=== PATIENT | female | born 1955 | race Caucasian/White ===

== ENCOUNTER 2022-08-04 05:21 | Inpatient (IN) | payer MEDICARE, MEDICAID ==
[~2022-08-04] VITALS: Ht 157.5 cm; Wt 67.6 kg
[2022-08-04] VITALS (24 sets, daily range): BP systolic 110–148; BP diastolic 63–93
[~2022-08-04 05:21] MED LIST: AMI2 PO; APIX5TAB PO; CARV12.545 PO; DOCU-150 PO; FERR325T6 PO; FURO20TA4 PO; LISI40TA13 PO; METF-416 PO; ROSU40TA PO
[2022-08-04 05:56] LABS: INR 1.1; PARTIAL THROMBOPLASTIN TIME 28.9 sec (23.4-31.0); PROTHROMBIN TIME 11.4 sec (9.6-11.0)
[2022-08-04 06:02] LABS: CHLORIDE 104 mEq/L (98-107)
[2022-08-04] MEDS ORDERED: SODIUM CHLORIDE 0.9% 1,000 ML IV SCH (06:15)
[2022-08-04 06:24] LABS: BASOPHILS % 0.9 % (0.0-2.0); EOSINOPHILS % 1.2 % (0.0-5.0); HEMATOCRIT. 35.5 % (36.0-48.0); HEMOGLOBIN. 11.8 g/dL (12.0-16.0); LYMPHOCYTES % 26.5 % (20.0-50.0); MEAN CORPUSCULAR HEMOGLOBIN 32.2 pg (28.0-32.0); MEAN CORPUSCULAR VOLUME 96.7 fL (81.0-99.0); MEAN PLATELET VOLUME 8.5 fl (7.4-10.4); MONOCYTES % 7.3 % (2.0-8.0); NEUTROPHILS % 64.1 % (40.0-76.0); PLATELET 296 x1000/uL (130-400); RED BLOOD CELL COUNT 3.67 mill/uL (4.2-5.4); RED CELL DISTRIBUTION WIDTH 14.2 % (11.6-14.6)
[2022-08-04 06:45] LABS: CLARITY URINE CLEAR (CLEAR); COLOR URINE YELLOW (YELLOW); KETONES URINE NEGATIVE (NEGATIVE); LEUKOCYTE ESTERASE URINE NEGATIVE (NEGATIVE); NITRITE URINE NEGATIVE (NEGATIVE); OCCULT BLOOD URINE NEGATIVE (NEGATIVE); PROTEIN URINE 2+ (NEGATIVE); SPECIFIC GRAVITY URINE 1.019 (1.005-1.030); UROBILINOGEN URINE 0.2 E.U./dL (0.2-1.0)
[2022-08-04] MEDS ORDERED: GENTAMICIN SULF 40MG/ML 2ML VIAL ONE (08:59)
[2022-08-04] MEDS ORDERED: LIDOCAINE HCL/EPINEPHRINE 1%-EPI 1:100,000 20 ML VIAL ONE (08:59)
[2022-08-04] MEDS ORDERED: NEOSTIGMINE METHYLSULFATE 1MG/ML 10 ML VIAL ONE (08:59)
[2022-08-04] MEDS ORDERED: SUCCINYLCHOLINE CHLORIDE 200MG/10ML IV ONE (08:59)
[2022-08-04] MEDS ORDERED: ETOMIDATE 2MG/ML 10ML VIAL IV ONE (08:59)
[2022-08-04] MEDS ORDERED: DEXAMETHASONE 4MG/ML 1ML VIAL ONE (08:59)
[2022-08-04] MEDS ORDERED: ROCURONIUM BROMIDE 10MG/ML VIAL 5ML IV ONE ×2 (08:59→09:10)
[2022-08-04] MEDS ORDERED: FENTANYL CITRATE/PF 50MCG/ML 2ML VIAL ONE (09:00)
[2022-08-04] MEDS ORDERED: MIDAZOLAM HCL 2 MG/2 ML VIAL ONE (09:00)
[2022-08-04] MEDS ORDERED: BACITRACIN 15GM TUBE TOP ONE (09:01)
[2022-08-04] MEDS ORDERED: THROMBIN (BOVINE) 5000 UNITS/VIAL TOP ONE (09:01)
[2022-08-04] MEDS ORDERED: CEFAZOLIN SODIUM 1000MG/VIAL ONE (09:33)
[2022-08-04] MEDS ORDERED: HYDROMORPHONE HCL/PF 2MG/ML CPJ ONE (09:34)
[2022-08-04] MEDS ORDERED: EPHEDRINE SULFATE 50MG/ML VIAL ONE (10:14)
[2022-08-04] MEDS ORDERED: HYDRALAZINE 20MG/ML VIAL ONE ×2 (10:16)
[2022-08-04] MEDS ORDERED: GLYCOPYRROLATE 0.2 MG/ML 2ML VIAL ONE ×3 (10:23→10:53)
[2022-08-04] MEDS ORDERED: NALOXONE HCL 0.4 MG/ML 1ML VIAL ONE (10:56)
[2022-08-04] MEDS ORDERED: NALOXONE HCL 0.4MG/ML VIAL IV PRN (11:00)
[2022-08-04] MEDS ORDERED: NICARDIPINE 100 MG in SODIUM CHLORIDE 0.9% 60 ML IV PRN (11:29)
[2022-08-04 12:38] LABS: BG BASE EXCESS -5.4 mmol/L (-2.0-2.0); BG CARBOXYHEMOGLOBIN 0.3 % (0.5-1.5); BG DEOXYHEMOGLOBIN 1.3 % (0.0-5.0); BG FRACTION INSPIRED OXYGEN 100; BG HCO3 ACT 19.3 mmol/L (22.0-26.0); BG METHEMOGLOBIN 0.2 % (0.0-1.5); BG OXYGEN SATURATION 98.7 % (92.0-98.5); BG OXYHEMOGLOBIN 98.2 % (94.0-97.0); BG PO2 172.5 mmHg (75.0-100.0); BG SAMPLE SITE RIGHT BRACHIAL; BG TOTAL HEMOGLOBIN 11.9 g/dL (12.0-18.0); BG VENT MODE VENT - AC
[2022-08-04] MEDS: DEXT 5%/LACTATED RINGERS 1,000 ML IV SCH ×2 (12:57→20:46)
[2022-08-04] MEDS: DEXAMETHASONE 4MG/ML 1ML VIAL IV SCH ×2 (12:57→17:14)
[2022-08-04] MEDS ORDERED: CEFAZOLIN SODIUM 1000MG/VIAL IV SCH (14:00)
[2022-08-04] MEDS: MORPHINE SULFATE 4 MG/ML CPJ (NOT FOR IM USE) IV PRN ×2 (14:09→17:14)
[2022-08-04] MEDS ORDERED: IPRATROPIUM/ALBUTEROL 0.5-3(2.5)MG/3ML NEB HHN PRN (14:15)
[2022-08-04 15:44] LABS: BG BASE EXCESS -4.6 mmol/L (-2.0-2.0); BG CARBOXYHEMOGLOBIN 0.3 % (0.5-1.5); BG DEOXYHEMOGLOBIN 1.6 % (0.0-5.0); BG FRACTION INSPIRED OXYGEN 50; BG HCO3 ACT 20.3 mmol/L (22.0-26.0); BG METHEMOGLOBIN 0.1 % (0.0-1.5); BG OXYGEN SATURATION 98.4 % (92.0-98.5); BG PCO2 36.8 mmHg (35.0-45.0); BG PH 7.359 (7.350-7.450); BG PO2 152.9 mmHg (75.0-100.0); BG SAMPLE SITE RIGHT RADIAL; BG TOTAL HEMOGLOBIN 11.9 g/dL (12.0-18.0); BG VENT MODE VENT - CPAP
[2022-08-04] MEDS ORDERED: HYDROMORPHONE PCA 10MG/50ML IV PRN (16:00)
[2022-08-04] MEDS ORDERED: NALOXONE INJ IV PRN (16:00)
[2022-08-04] MEDS ORDERED: DIPHENHYDRAMINE INJ IV PRN (16:00)
[2022-08-04] MEDS: CEFAZOLIN 1000MG PREMIX 50 ML IV SCH (17:14)
[2022-08-04] MEDS: ONDANSETRON INJ IV PRN (17:22)
[2022-08-05] VITALS (38 sets, daily range): BP systolic 109–160; BP diastolic 54–95
[2022-08-05] MEDS: DEXAMETHASONE 4MG/ML 1ML VIAL IV SCH ×4 (00:07→17:24)
[2022-08-05] MEDS: CEFAZOLIN 1000MG PREMIX 50 ML IV SCH ×3 (00:07→17:23)
[2022-08-05 06:02] LABS: HEMATOCRIT. 34.5 % (36.0-48.0); HEMOGLOBIN. 11.5 g/dL (12.0-16.0); LYMPHOCYTES % 8.4 % (20.0-50.0); MEAN CORPUSCULAR HEMOGLOBIN 32.3 pg (28.0-32.0); MEAN CORPUSCULAR VOLUME 97.2 fL (81.0-99.0); MEAN PLATELET VOLUME 8.9 fl (7.4-10.4); MONOCYTES % 3.4 % (2.0-8.0); NEUTROPHILS % 88.2 % (40.0-76.0); PLATELET 301 x1000/uL (130-400); RED BLOOD CELL COUNT 3.55 mill/uL (4.2-5.4); RED CELL DISTRIBUTION WIDTH 14.1 % (11.6-14.6)
[2022-08-05 06:49] LABS: CHLORIDE 104 mEq/L (98-107)
[2022-08-05] MEDS: MORPHINE SULFATE 4 MG/ML CPJ (NOT FOR IM USE) IV PRN ×2 (06:51→21:23)
[2022-08-05] MEDS: DEXT 5%/LACTATED RINGERS 1,000 ML IV SCH (06:55)
[2022-08-05] MEDS ORDERED: DEXTROSE 50% WATER 50ML SYRINGE IV PRN ×2 (13:45)
[2022-08-05] MEDS: BLOOD SUGAR DIAGNOSTIC STRIP TEST SCH ×2 (16:49→21:24)
[2022-08-05] MEDS: INSULIN LISPRO 100 UNITS/ML SUBCUT SCH ×2 (17:24→21:24)
[2022-08-05] MEDS: ONDANSETRON INJ IV PRN (17:29)
[2022-08-05] MEDS: ATORVASTATIN CALCIUM 40MG TABLET PO SCH (21:23)
[2022-08-06] VITALS (29 sets, daily range): BP systolic 110–150; BP diastolic 68–98
[2022-08-06] MEDS: CEFAZOLIN 1000MG PREMIX 50 ML IV SCH ×3 (01:26→16:10)
[2022-08-06] MEDS: DEXAMETHASONE 4MG/ML 1ML VIAL IV SCH ×3 (01:26→11:57)
[2022-08-06] MEDS: DEXT 5%/LACTATED RINGERS 1,000 ML IV SCH ×2 (03:00→06:16)
[2022-08-06] MEDS: INSULIN LISPRO 100 UNITS/ML SUBCUT SCH ×4 (06:16→21:47)
[2022-08-06] MEDS: BLOOD SUGAR DIAGNOSTIC STRIP TEST SCH ×5 (06:17→21:00)
[2022-08-06] MEDS: MORPHINE SULFATE 4 MG/ML CPJ (NOT FOR IM USE) IV PRN ×3 (06:25→16:07)
[2022-08-06] MEDS: FUROSEMIDE 40MG TABLET PO SCH (08:15)
[2022-08-06] MEDS: AMIODARONE HCL 200 MG TABLET PO SCH (08:16)
[2022-08-06] MEDS: CARVEDILOL 12.5MG TABLET PO SCH (08:16)
[2022-08-06] MEDS: LISINOPRIL 40MG TABLET PO SCH (08:16)
[2022-08-06] MEDS: METFORMIN HCL 500MG TABLET PO SCH (08:17)
[2022-08-06] MEDS: FERROUS SULFATE 325MG TABLET PO SCH (08:17)
[2022-08-06] MEDS ORDERED: CLONIDINE 0.1MG TABLET PO PRN (15:45)
[2022-08-06] MEDS: ATORVASTATIN CALCIUM 40MG TABLET PO SCH (21:45)
[2022-08-07] VITALS: BP 130/82
[2022-08-07] MEDS: MORPHINE SULFATE 4 MG/ML CPJ (NOT FOR IM USE) IV PRN ×2 (02:26→18:32)
[2022-08-07 04:00] VITALS: BP 135/90
[2022-08-07] MEDS: BLOOD SUGAR DIAGNOSTIC STRIP TEST SCH ×4 (07:40→21:00)
[2022-08-07 08:00] VITALS: BP 129/74
[2022-08-07] MEDS: AMIODARONE HCL 200 MG TABLET PO SCH (08:40)
[2022-08-07] MEDS: FERROUS SULFATE 325MG TABLET PO SCH (08:40)
[2022-08-07] MEDS: FUROSEMIDE 40MG TABLET PO SCH (08:41)
[2022-08-07] MEDS: CARVEDILOL 12.5MG TABLET PO SCH (08:41)
[2022-08-07] MEDS: LISINOPRIL 40MG TABLET PO SCH (08:41)
[2022-08-07] MEDS: METFORMIN HCL 500MG TABLET PO SCH (08:41)
[2022-08-07] MEDS: INSULIN LISPRO 100 UNITS/ML SUBCUT SCH ×4 (08:48→20:55)
[2022-08-07] MEDS: HYDROCODONE/ACETAMINOPHEN 5/325MG TABLET PO PRN ×2 (10:59→15:25)
[2022-08-07 12:00] VITALS: BP 108/65
[2022-08-07 16:00] VITALS: BP 110/63
[2022-08-07 20:00] VITALS: BP 107/63
[2022-08-07] MEDS: ATORVASTATIN CALCIUM 40MG TABLET PO SCH (20:51)
[2022-08-08] VITALS (7 sets, daily range): BP systolic 95–138; BP diastolic 54–84
[2022-08-08 05:26] LABS: BASOPHILS % 0.3 % (0.0-2.0); EOSINOPHILS % 0.4 % (0.0-5.0); HEMATOCRIT. 34.9 % (36.0-48.0); HEMOGLOBIN. 11.7 g/dL (12.0-16.0); LYMPHOCYTES % 18.7 % (20.0-50.0); MEAN CORPUSCULAR HEMOGLOBIN 32.1 pg (28.0-32.0); MEAN CORPUSCULAR VOLUME 95.9 fL (81.0-99.0); MEAN PLATELET VOLUME 8.3 fl (7.4-10.4); MONOCYTES % 7.3 % (2.0-8.0); NEUTROPHILS % 73.3 % (40.0-76.0); PLATELET 253 x1000/uL (130-400); RED BLOOD CELL COUNT 3.63 mill/uL (4.2-5.4); RED CELL DISTRIBUTION WIDTH 13.8 % (11.6-14.6)
[2022-08-08] MEDS: BLOOD SUGAR DIAGNOSTIC STRIP TEST SCH ×4 (07:20→20:59)
[2022-08-08] MEDS: INSULIN LISPRO 100 UNITS/ML SUBCUT SCH ×4 (07:50→20:59)
[2022-08-08] MEDS: ONDANSETRON INJ IV PRN (08:59)
[2022-08-08] MEDS: FUROSEMIDE 40MG TABLET PO SCH (09:00)
[2022-08-08] MEDS: MORPHINE SULFATE 4 MG/ML CPJ (NOT FOR IM USE) IV PRN ×2 (09:00→22:34)
[2022-08-08] MEDS: LISINOPRIL 40MG TABLET PO SCH (09:01)
[2022-08-08] MEDS: METFORMIN HCL 500MG TABLET PO SCH (09:01)
[2022-08-08] MEDS: AMIODARONE HCL 200 MG TABLET PO SCH (09:01)
[2022-08-08] MEDS: CARVEDILOL 12.5MG TABLET PO SCH (09:01)
[2022-08-08] MEDS: FERROUS SULFATE 325MG TABLET PO SCH (09:01)
[2022-08-08] MEDS: HYDROCODONE/ACETAMINOPHEN 5/325MG TABLET PO PRN (18:51)
[2022-08-08] MEDS: ATORVASTATIN CALCIUM 40MG TABLET PO SCH (21:15)
[2022-08-09] MEDS: HYDROCODONE/ACETAMINOPHEN 5/325MG TABLET PO PRN ×2 (03:51→07:16)
[2022-08-09 04:00] VITALS: BP 150/86
[2022-08-09] MEDS: BLOOD SUGAR DIAGNOSTIC STRIP TEST SCH ×4 (06:36→21:00)
[2022-08-09] MEDS: INSULIN LISPRO 100 UNITS/ML SUBCUT SCH ×4 (06:36→21:02)
[2022-08-09 08:00] VITALS: BP 165/95
[2022-08-09] MEDS: FERROUS SULFATE 325MG TABLET PO SCH (08:38)
[2022-08-09] MEDS: FUROSEMIDE 40MG TABLET PO SCH (08:38)
[2022-08-09] MEDS: LISINOPRIL 40MG TABLET PO SCH (08:38)
[2022-08-09] MEDS: AMIODARONE HCL 200 MG TABLET PO SCH (08:38)
[2022-08-09] MEDS: CARVEDILOL 12.5MG TABLET PO SCH (08:39)
[2022-08-09 14:00] VITALS: BP 135/78
[2022-08-09 16:00] VITALS: BP 121/74
[2022-08-09 20:00] VITALS: BP 128/78
[2022-08-09] MEDS: ATORVASTATIN CALCIUM 40MG TABLET PO SCH (21:00)
[2022-08-10] VITALS (8 sets, daily range): BP systolic 119–157; BP diastolic 64–94
[2022-08-10] MEDS: BLOOD SUGAR DIAGNOSTIC STRIP TEST SCH ×3 (06:26→17:30)
[2022-08-10] MEDS: INSULIN LISPRO 100 UNITS/ML SUBCUT SCH ×3 (06:54→17:58)
[2022-08-10] MEDS: AMIODARONE HCL 200 MG TABLET PO SCH (08:39)
[2022-08-10] MEDS: FERROUS SULFATE 325MG TABLET PO SCH (08:39)
[2022-08-10] MEDS: CARVEDILOL 12.5MG TABLET PO SCH (08:40)
[2022-08-10] MEDS: FUROSEMIDE 40MG TABLET PO SCH (08:40)
[2022-08-10] MEDS: LISINOPRIL 40MG TABLET PO SCH (08:42)
[2022-08-10] MEDS ORDERED: CARVEDILOL 12.5MG TABLET PO NR (10:30)
[2022-08-10] MEDS ORDERED: HYDROCODONE/ACETAMINOPHEN 5/325MG TABLET PO PRN (14:30)
[2022-08-10] MEDS ORDERED: NALOXONE HCL 0.4MG/ML VIAL IV PRN (14:45)
[2022-08-10] MEDS ORDERED: FUROSEMIDE 20MG TABLET PO SCH (17:40)
[2022-08-10] MEDS ORDERED: CARVEDILOL 12.5MG TABLET PO SCH (21:00)
== END 2022-08-10 18:53 | DRG 471 ==
LOC: OR 05:21 → MICUNO 05:22 → 6WST 08-06 16:52
PROVIDERS: ADMIT Internal Medicine; ATTEND Internal Medicine
PROC: 0RG2071 Fusion of 2 or more Cervical Vertebral Joints with Autologous Tissue Substitute, Posterior Approach, Posterior Column, Open Approach (ICD-10-PCS; principal; 2022-08-04)
PROC: 01N10ZZ Release Cervical Nerve, Open Approach (ICD-10-PCS; 2022-08-04)
PROC: 4A11X4G Monitoring of Peripheral Nervous Electrical Activity, Intraoperative, External Approach (ICD-10-PCS; 2022-08-04)
DX: M48.02 Spinal stenosis, cervical region (principal); G82.50 Quadriplegia, unspecified; G99.2 Myelopathy in diseases classified elsewhere; I69.354 Hemiplegia and hemiparesis following cerebral infarction affecting left non-dominant side; D64.9 Anemia, unspecified; Z20.822 Contact with and (suspected) exposure to COVID-19; E11.9 Type 2 diabetes mellitus without complications; I48.91 Unspecified atrial fibrillation; E78.5 Hyperlipidemia, unspecified; I50.9 Heart failure, unspecified; I11.0 Hypertensive heart disease with heart failure; R26.9 Unspecified abnormalities of gait and mobility; Z79.01 Long term (current) use of anticoagulants; Z85.038 Personal history of other malignant neoplasm of large intestine
CPT/HCPCS: 36415; 36600; 71045; 72040; 72141; 76000; 80048; 80053; 81003; 82375; 82805; 82947; 82962; 83036; 85025; 86850; 86900; 87426; 88304; 88311; 94002; 95925; 95926; 95928; 95929; 97110; 97116; 97162; 97166; 97530; C1713; C9803; J0330; J0360; J0690; J1100; J1170; J1580; J1815; J2250; J2270; J2310; J2405; J2710; J3010; J3490; J7050; J7121; L0172

== ENCOUNTER 2022-08-20 17:52 | Inpatient (IN) | payer MEDICARE, MEDICAID ==
[~2022-08-20] VITALS: Ht 157.5 cm; Wt 70.8 kg
[2022-08-20 08:00] VITALS: BP 112/65
[2022-08-20 17:05] VITALS: BP 115/78
[2022-08-20 18:00] VITALS: BP 115/78
[2022-08-20] MEDS ORDERED: DEXTROSE 50% WATER 50ML SYRINGE IV PRN (18:15)
[2022-08-20] MEDS: BLOOD SUGAR DIAGNOSTIC STRIP TEST SCH ×2 (18:20→21:21)
[2022-08-20] MEDS: INSULIN LISPRO 100 UNITS/ML SUBCUT SCH ×2 (18:20→22:06)
[2022-08-20] MEDS ORDERED: IPRATROPIUM/ALBUTEROL 0.5-3(2.5)MG/3ML NEB HHN PRN (18:30)
[2022-08-20] MEDS ORDERED: CLONIDINE 0.1MG TABLET PO PRN (18:30)
[2022-08-20] MEDS ORDERED: NALOXONE HCL 0.4MG/ML VIAL IV PRN (18:30)
[2022-08-20] MEDS: GABAPENTIN 300MG CAPSULE PO SCH (19:04)
[2022-08-20] MEDS: HYDROCODONE/ACETAMINOPHEN 10/325MG TABLET PO PRN (19:05)
[2022-08-20 20:25] VITALS: BP 100/63
[2022-08-20] MEDS: METOPROLOL TARTRATE 50MG TABLET PO SCH (20:47)
[2022-08-20] MEDS ORDERED: DICLOFENAC SODIUM 1% GEL 50GM TOP SCH (21:00)
[2022-08-20] MEDS: LACTULOSE 20G/30ML UDC PO SCH (21:12)
[2022-08-20] MEDS: ATORVASTATIN CALCIUM 40MG TABLET PO SCH (21:14)
[2022-08-21] VITALS (47 sets, daily range): BP systolic 90–156; BP diastolic 53–97
[2022-08-21] MEDS: LACTULOSE 20G/30ML UDC PO SCH ×3 (05:00→21:14)
[2022-08-21] MEDS: INSULIN LISPRO 100 UNITS/ML SUBCUT SCH ×4 (05:07→20:09)
[2022-08-21] MEDS ORDERED: GENTAMICIN SULF 40MG/ML 2ML VIAL ONE (06:02)
[2022-08-21] MEDS ORDERED: THROMBIN (BOVINE) 5000 UNITS/VIAL TOP ONE (06:02)
[2022-08-21] MEDS ORDERED: BACITRACIN 15GM TUBE TOP ONE (06:02)
[2022-08-21] MEDS ORDERED: LIDOCAINE HCL/EPINEPHRINE 1%-EPI 1:100,000 20 ML VIAL ONE (06:19)
[2022-08-21] MEDS ORDERED: PROPOFOL 200MG/20ML VIAL IV ONE (06:47)
[2022-08-21] MEDS ORDERED: MIDAZOLAM HCL 2 MG/2 ML VIAL ONE (06:48)
[2022-08-21] MEDS ORDERED: ONDANSETRON HCL 4MG/2ML INJ ONE (07:55)
[2022-08-21] MEDS ORDERED: FENTANYL CITRATE/PF 50MCG/ML 2ML VIAL ONE (07:55)
[2022-08-21] MEDS ORDERED: DEXAMETHASONE 4MG/ML 1ML VIAL ONE (07:55)
[2022-08-21] MEDS ORDERED: SUCCINYLCHOLINE CHLORIDE 200MG/10ML IV ONE (07:55)
[2022-08-21] MEDS ORDERED: FENTANYL CITRATE/PF 50MCG/ML 2ML VIAL IV PRN (08:15)
[2022-08-21] MEDS ORDERED: HYDROMORPHONE HCL/PF 2MG/ML CPJ IV PRN (08:15)
[2022-08-21] MEDS ORDERED: ATROPINE SULFATE 0.4MG/ML VIAL IV PRN (08:15)
[2022-08-21] MEDS ORDERED: ERGOCALCIFEROL 50000UNITS CAPSULE PO SCH (09:00)
[2022-08-21] MEDS: BLOOD SUGAR DIAGNOSTIC STRIP TEST SCH ×4 (09:00→20:09)
[2022-08-21] MEDS ORDERED: NICARDIPINE 100 MG in SODIUM CHLORIDE 0.9% 60 ML IV PRN (09:30)
[2022-08-21 11:06] LABS: HEMATOCRIT. 34.9 % (36.0-48.0); HEMOGLOBIN. 11.9 g/dL (12.0-16.0); MEAN CORPUSCULAR HEMOGLOBIN 33.1 pg (28.0-32.0); MEAN CORPUSCULAR VOLUME 96.7 fL (81.0-99.0); MEAN PLATELET VOLUME 7.4 fl (7.4-10.4); PLATELET 321 x1000/uL (130-400); RED BLOOD CELL COUNT 3.61 mill/uL (4.2-5.4); RED CELL DISTRIBUTION WIDTH 13.8 % (11.6-14.6)
[2022-08-21] MEDS: GABAPENTIN 300MG CAPSULE PO SCH ×2 (11:37→17:39)
[2022-08-21] MEDS: METOPROLOL TARTRATE 50MG TABLET PO SCH ×2 (11:37→20:10)
[2022-08-21] MEDS: LISINOPRIL 40MG TABLET PO SCH (11:37)
[2022-08-21] MEDS: CEFAZOLIN 1000MG PREMIX 50 ML IV SCH ×2 (11:57→20:10)
[2022-08-21 12:12] LABS: PLATELET ESTIMATE NORMAL
[2022-08-21 12:44] LABS: CHLORIDE 107 mEq/L (98-107)
[2022-08-21] MEDS: ONDANSETRON HCL 4MG/2ML INJ IV PRN (13:18)
[2022-08-21] MEDS: MORPHINE SULFATE 4 MG/ML CPJ (NOT FOR IM USE) IV PRN ×2 (13:19→23:19)
[2022-08-21] MEDS ORDERED: CEFAZOLIN SODIUM 1000MG/VIAL IV SCH (14:00)
[2022-08-21] MEDS: ATORVASTATIN CALCIUM 40MG TABLET PO SCH (20:11)
[2022-08-22] VITALS (43 sets, daily range): BP systolic 114–141; BP diastolic 56–95
[2022-08-22] MEDS: HYDROCODONE/ACETAMINOPHEN 5/325MG TABLET PO PRN ×3 (00:09→15:22)
[2022-08-22] MEDS: CEFAZOLIN 1000MG PREMIX 50 ML IV SCH ×3 (03:14→21:13)
[2022-08-22] MEDS: BLOOD SUGAR DIAGNOSTIC STRIP TEST SCH ×4 (05:38→21:13)
[2022-08-22] MEDS: LACTULOSE 20G/30ML UDC PO SCH ×3 (05:41→21:39)
[2022-08-22] MEDS: INSULIN LISPRO 100 UNITS/ML SUBCUT SCH ×4 (06:02→21:00)
[2022-08-22] MEDS: MORPHINE SULFATE 4 MG/ML CPJ (NOT FOR IM USE) IV PRN (09:01)
[2022-08-22] MEDS ORDERED: PNEUMOCOCCAL 23-VAL P-SAC VAC 0.5 ML IM ONE (10:00)
[2022-08-22] MEDS: ONDANSETRON HCL 4MG/2ML INJ IV PRN (10:49)
[2022-08-22] MEDS: LISINOPRIL 40MG TABLET PO SCH (10:50)
[2022-08-22] MEDS: METOPROLOL TARTRATE 50MG TABLET PO SCH ×2 (10:50→21:13)
[2022-08-22] MEDS: GABAPENTIN 300MG CAPSULE PO SCH ×3 (10:50→18:41)
[2022-08-22] MEDS: ATORVASTATIN CALCIUM 40MG TABLET PO SCH (21:12)
[2022-08-22] MEDS: HYDROCODONE/ACETAMINOPHEN 10/325MG TABLET PO PRN (23:10)
[2022-08-23] VITALS (29 sets, daily range): BP systolic 95–159; BP diastolic 25–91
[2022-08-23] MEDS: HYDROCODONE/ACETAMINOPHEN 5/325MG TABLET PO PRN (00:45)
[2022-08-23] MEDS: MORPHINE SULFATE 4 MG/ML CPJ (NOT FOR IM USE) IV PRN ×4 (01:48→23:55)
[2022-08-23] MEDS: CEFAZOLIN 1000MG PREMIX 50 ML IV SCH ×3 (03:26→19:52)
[2022-08-23] MEDS: BLOOD SUGAR DIAGNOSTIC STRIP TEST SCH ×4 (05:37→20:40)
[2022-08-23] MEDS: LACTULOSE 20G/30ML UDC PO SCH ×3 (05:37→22:12)
[2022-08-23] MEDS: INSULIN LISPRO 100 UNITS/ML SUBCUT SCH ×4 (06:02→20:58)
[2022-08-23] MEDS: LISINOPRIL 40MG TABLET PO SCH (08:20)
[2022-08-23] MEDS: METOPROLOL TARTRATE 50MG TABLET PO SCH ×2 (08:20→20:36)
[2022-08-23] MEDS: GABAPENTIN 300MG CAPSULE PO SCH ×3 (08:20→16:22)
[2022-08-23] MEDS: ATORVASTATIN CALCIUM 40MG TABLET PO SCH (20:36)
[2022-08-23] MEDS: HYDROCODONE/ACETAMINOPHEN 10/325MG TABLET PO PRN (20:36)
[2022-08-24] VITALS (7 sets, daily range): BP systolic 116–144; BP diastolic 68–85
[2022-08-24] MEDS: CEFAZOLIN 1000MG PREMIX 50 ML IV SCH ×3 (03:54→20:41)
[2022-08-24] MEDS: MORPHINE SULFATE 4 MG/ML CPJ (NOT FOR IM USE) IV PRN ×2 (03:55→10:48)
[2022-08-24] MEDS: LACTULOSE 20G/30ML UDC PO SCH ×3 (06:07→20:42)
[2022-08-24 07:00] LABS: BASOPHILS % 0.4 % (0.0-2.0); EOSINOPHILS % 0.9 % (0.0-5.0); HEMATOCRIT. 35.2 % (36.0-48.0); LYMPHOCYTES % 16.2 % (20.0-50.0); MEAN CORPUSCULAR HEMOGLOBIN 32.7 pg (28.0-32.0); MEAN CORPUSCULAR VOLUME 96.1 fL (81.0-99.0); MEAN PLATELET VOLUME 7.3 fl (7.4-10.4); MONOCYTES % 7.4 % (2.0-8.0); NEUTROPHILS % 75.1 % (40.0-76.0); PLATELET 403 x1000/uL (130-400); RED BLOOD CELL COUNT 3.66 mill/uL (4.2-5.4)
[2022-08-24] MEDS: BLOOD SUGAR DIAGNOSTIC STRIP TEST SCH ×4 (08:13→20:11)
[2022-08-24 08:36] LABS: CHLORIDE 103 mEq/L (98-107)
[2022-08-24] MEDS: METOPROLOL TARTRATE 50MG TABLET PO SCH ×3 (09:26→20:42)
[2022-08-24] MEDS: GABAPENTIN 300MG CAPSULE PO SCH ×3 (09:26→16:38)
[2022-08-24] MEDS: LISINOPRIL 40MG TABLET PO SCH (09:27)
[2022-08-24] MEDS: INSULIN LISPRO 100 UNITS/ML SUBCUT SCH ×4 (09:34→20:11)
[2022-08-24] MEDS ORDERED: IPRATROPIUM/ALBUTEROL 0.5-3(2.5)MG/3ML NEB HHN PRN (15:15)
[2022-08-24] MEDS: SODIUM CHLORIDE 0.9% 1,000 ML IV SCH (15:23)
[2022-08-24 16:19] LABS: HEPATITIS B SURFACE ANTIGEN NEGATIVE
[2022-08-24 16:45] LABS: CLARITY URINE CLOUDY (CLEAR); COLOR URINE YELLOW (YELLOW); KETONES URINE NEGATIVE (NEGATIVE); LEUKOCYTE ESTERASE URINE 3+ (NEGATIVE); NITRITE URINE NEGATIVE (NEGATIVE); OCCULT BLOOD URINE TRACE (NEGATIVE); PROTEIN URINE 1+ (NEGATIVE); SPECIFIC GRAVITY URINE 1.013 (1.005-1.030); UROBILINOGEN URINE 0.2 E.U./dL (0.2-1.0)
[2022-08-24 17:37] LABS: CREATINE KINASE 42 IU/L (26-192)
[2022-08-24] MEDS: AMLODIPINE 5MG TABLET PO SCH (20:41)
[2022-08-24] MEDS: ATORVASTATIN CALCIUM 40MG TABLET PO SCH (20:41)
[2022-08-25] VITALS: BP 151/84
[2022-08-25] MEDS: CEFAZOLIN 1000MG PREMIX 50 ML IV SCH ×3 (03:06→21:10)
[2022-08-25 04:00] VITALS: BP 143/70
[2022-08-25] MEDS: LACTULOSE 20G/30ML UDC PO SCH ×4 (05:23→21:10)
[2022-08-25] MEDS: METOPROLOL TARTRATE 50MG TABLET PO SCH ×3 (05:23→21:10)
[2022-08-25] MEDS: SODIUM CHLORIDE 0.9% 1,000 ML IV SCH ×2 (05:23→21:12)
[2022-08-25] MEDS: BLOOD SUGAR DIAGNOSTIC STRIP TEST SCH ×4 (06:21→20:55)
[2022-08-25 07:11] LABS: BASOPHILS % 0.5 % (0.0-2.0); EOSINOPHILS % 1.4 % (0.0-5.0); HEMATOCRIT. 32.4 % (36.0-48.0); LYMPHOCYTES % 20.6 % (20.0-50.0); MEAN CORPUSCULAR HEMOGLOBIN 32.9 pg (28.0-32.0); MEAN CORPUSCULAR VOLUME 96.5 fL (81.0-99.0); MEAN PLATELET VOLUME 7.8 fl (7.4-10.4); MONOCYTES % 8.9 % (2.0-8.0); NEUTROPHILS % 68.6 % (40.0-76.0); PLATELET 353 x1000/uL (130-400); RED BLOOD CELL COUNT 3.35 mill/uL (4.2-5.4); RED CELL DISTRIBUTION WIDTH 13.9 % (11.6-14.6)
[2022-08-25 07:17] LABS: CHLORIDE 104 mEq/L (98-107); PHOSPHORUS 2.6 mg/dL (2.5-4.9)
[2022-08-25] MEDS: INSULIN LISPRO 100 UNITS/ML SUBCUT SCH ×4 (07:50→21:11)
[2022-08-25 08:00] VITALS: BP 135/87
[2022-08-25] MEDS ORDERED: POTASSIUM CHLORIDE 20MEQ/PACKET PO NR (10:30)
[2022-08-25] MEDS: GABAPENTIN 300MG CAPSULE PO SCH ×3 (10:37→18:39)
[2022-08-25] MEDS: AMLODIPINE 5MG TABLET PO SCH ×2 (10:37→21:10)
[2022-08-25 12:00] VITALS: BP 121/81
[2022-08-25] MEDS ORDERED: MAGNESIUM 2 G PREMIX 50 ML IV NR (12:00)
[2022-08-25 16:00] VITALS: BP 124/73
[2022-08-25 20:00] VITALS: BP 127/75
[2022-08-25] MEDS: ATORVASTATIN CALCIUM 40MG TABLET PO SCH (21:10)
[2022-08-26] VITALS (7 sets, daily range): BP systolic 114–138; BP diastolic 69–87
[2022-08-26] MEDS: METOPROLOL TARTRATE 50MG TABLET PO SCH ×3 (04:55→20:48)
[2022-08-26] MEDS: CEFAZOLIN 1000MG PREMIX 50 ML IV SCH (04:55)
[2022-08-26] MEDS: LACTULOSE 20G/30ML UDC PO SCH ×3 (04:55→20:47)
[2022-08-26] MEDS: BLOOD SUGAR DIAGNOSTIC STRIP TEST SCH ×4 (06:26→20:48)
[2022-08-26] MEDS: INSULIN LISPRO 100 UNITS/ML SUBCUT SCH ×4 (06:27→20:47)
[2022-08-26] MEDS: AMLODIPINE 5MG TABLET PO SCH (09:00)
[2022-08-26] MEDS: GABAPENTIN 300MG CAPSULE PO SCH ×3 (09:00→18:02)
[2022-08-26] MEDS: POTASSIUM CHLORIDE 20MEQ/PACKET PO SCH (09:01)
[2022-08-26] MEDS ORDERED: NALOXONE HCL 0.4MG/ML VIAL IV PRN (11:15)
[2022-08-26] MEDS ORDERED: HYDROCODONE/ACETAMINOPHEN 10/325MG TABLET PO PRN (11:15)
[2022-08-26] MEDS ORDERED: MORPHINE SULFATE 2 MG/ML CPJ (NOT FOR IM USE) IV PRN (11:15)
[2022-08-26 12:42] LABS: BASOPHILS % 0.5 % (0.0-2.0); EOSINOPHILS % 0.9 % (0.0-5.0); HEMATOCRIT. 31.8 % (36.0-48.0); HEMOGLOBIN. 10.7 g/dL (12.0-16.0); LYMPHOCYTES % 15.4 % (20.0-50.0); MEAN CORPUSCULAR HEMOGLOBIN 32.5 pg (28.0-32.0); MEAN CORPUSCULAR VOLUME 96.3 fL (81.0-99.0); MEAN PLATELET VOLUME 7.8 fl (7.4-10.4); MONOCYTES % 5.4 % (2.0-8.0); NEUTROPHILS % 77.8 % (40.0-76.0); PLATELET 363 x1000/uL (130-400); RED CELL DISTRIBUTION WIDTH 13.8 % (11.6-14.6)
[2022-08-26 13:09] LABS: CHLORIDE 110 mEq/L (98-107)
[2022-08-26] MEDS: DILTIAZEM HCL 60MG TABLET PO SCH ×3 (13:16→23:52)
[2022-08-26] MEDS: SODIUM CHLORIDE 0.9% 1,000 ML IV SCH (14:45)
[2022-08-26] MEDS: ATORVASTATIN CALCIUM 40MG TABLET PO SCH (20:47)
[2022-08-27] VITALS: BP 132/73
[2022-08-27 04:00] VITALS: BP 122/74
[2022-08-27] MEDS: LACTULOSE 20G/30ML UDC PO SCH ×3 (06:00→20:38)
[2022-08-27] MEDS: DILTIAZEM HCL 60MG TABLET PO SCH ×3 (06:07→17:54)
[2022-08-27] MEDS: METOPROLOL TARTRATE 50MG TABLET PO SCH ×3 (06:08→20:38)
[2022-08-27] MEDS: BLOOD SUGAR DIAGNOSTIC STRIP TEST SCH ×4 (06:23→20:51)
[2022-08-27 06:59] LABS: BASOPHILS % 0.5 % (0.0-2.0); HEMATOCRIT. 31.6 % (36.0-48.0); HEMOGLOBIN. 10.9 g/dL (12.0-16.0); LYMPHOCYTES % 20.5 % (20.0-50.0); MEAN CORPUSCULAR HEMOGLOBIN 33.2 pg (28.0-32.0); MEAN CORPUSCULAR VOLUME 96.5 fL (81.0-99.0); MEAN PLATELET VOLUME 7.3 fl (7.4-10.4); MONOCYTES % 6.4 % (2.0-8.0); NEUTROPHILS % 71.6 % (40.0-76.0); PLATELET 372 x1000/uL (130-400); RED BLOOD CELL COUNT 3.27 mill/uL (4.2-5.4); RED CELL DISTRIBUTION WIDTH 14.1 % (11.6-14.6)
[2022-08-27 07:14] LABS: CHLORIDE 110 mEq/L (98-107)
[2022-08-27] MEDS: INSULIN LISPRO 100 UNITS/ML SUBCUT SCH ×4 (07:15→20:51)
[2022-08-27 08:00] VITALS: BP 126/66
[2022-08-27] MEDS: GABAPENTIN 300MG CAPSULE PO SCH ×3 (08:48→17:28)
[2022-08-27] MEDS: POTASSIUM CHLORIDE 20MEQ/PACKET PO SCH (08:48)
[2022-08-27 12:31] VITALS: BP 138/83
[2022-08-27] MEDS ORDERED: POTASSIUM CHLORIDE 20MEQ/PACKET PO NR (15:45)
[2022-08-27 16:00] VITALS: BP 128/73
[2022-08-27 20:00] VITALS: BP 120/68
[2022-08-27] MEDS: SODIUM CHLORIDE 0.9% 1,000 ML IV SCH (20:38)
[2022-08-27] MEDS: ATORVASTATIN CALCIUM 40MG TABLET PO SCH (20:38)
[2022-08-28] VITALS: BP 138/76
[2022-08-28] MEDS: DILTIAZEM HCL 60MG TABLET PO SCH (00:22)
[2022-08-28] MEDS: SODIUM CHLORIDE 0.9% 1,000 ML IV SCH (00:23)
[2022-08-28 00:44] VITALS: BP 138/76
== END 2022-08-28 01:30 | DRG 907 ==
LOC: 4WST 17:52 → MICUNO 08-21 08:31 → 6EST 08-24 00:37 → 6WST 08-24 16:58
PROVIDERS: ADMIT Internal Medicine; ATTEND Internal Medicine
PROC: 00CU0ZZ Extirpation of Matter from Spinal Canal, Open Approach (ICD-10-PCS; principal; 2022-08-24)
DX: G97.61 Postprocedural hematoma of a nervous system organ or structure following a nervous system procedure (principal); G82.50 Quadriplegia, unspecified; N17.0 Acute kidney failure with tubular necrosis; G95.20 Unspecified cord compression; I50.32 Chronic diastolic (congestive) heart failure; I69.354 Hemiplegia and hemiparesis following cerebral infarction affecting left non-dominant side; N39.0 Urinary tract infection, site not specified; I48.20 Chronic atrial fibrillation, unspecified; E72.4 Disorders of ornithine metabolism; F05 Delirium due to known physiological condition; G99.2 Myelopathy in diseases classified elsewhere; G97.63 Postprocedural seroma of a nervous system organ or structure following a nervous system procedure; M48.02 Spinal stenosis, cervical region; Z20.822 Contact with and (suspected) exposure to COVID-19; M50.10 Cervical disc disorder with radiculopathy, unspecified cervical region; I48.91 Unspecified atrial fibrillation; I11.0 Hypertensive heart disease with heart failure; E87.6 Hypokalemia; R74.01 Elevation of levels of liver transaminase levels; D72.829 Elevated white blood cell count, unspecified; D64.9 Anemia, unspecified; K76.0 Fatty (change of) liver, not elsewhere classified; E78.5 Hyperlipidemia, unspecified; E11.9 Type 2 diabetes mellitus without complications; E61.1 Iron deficiency; B95.2 Enterococcus as the cause of diseases classified elsewhere; E55.9 Vitamin D deficiency, unspecified; R26.9 Unspecified abnormalities of gait and mobility; Z90.49 Acquired absence of other specified parts of digestive tract; Z85.038 Personal history of other malignant neoplasm of large intestine; Z79.01 Long term (current) use of anticoagulants; Y83.8 Other surgical procedures as the cause of abnormal reaction of the patient, or of later complication, without mention of misadventure at the time of the procedure; Y92.89 Other specified places as the place of occurrence of the external cause
CPT/HCPCS: 36415; 72141; 76700; 80048; 80076; 81003; 82140; 82550; 82962; 83735; 84100; 85025; 86705; 86709; 86803; 87070; 87075; 87340; 87426; 88304; 90732; 93005; 97110; 97116; 97162; 97164; 97166; 97530; 97535; A6261; J0330; J0690; J1100; J1580; J1815; J2250; J2270; J2405; J2704; J3010; J3475; J3490; J7030; A4315

== ENCOUNTER 2022-08-28 01:45 | Inpatient (IN) | payer MEDICARE, MEDICAID ==
[~2022-08-28] VITALS: Ht 157.5 cm; Wt 70.8 kg
[2022-08-28 01:50] VITALS: BP 130/62
[2022-08-28] MEDS ORDERED: ONDANSETRON HCL 4MG/2ML INJ IV PRN (03:45)
[2022-08-28] MEDS ORDERED: NALOXONE HCL 0.4 MG/ML 1ML VIAL IV PRN (03:45)
[2022-08-28] MEDS ORDERED: IPRATROPIUM/ALBUTEROL 0.5-3(2.5)MG/3ML NEB HHN PRN (03:45)
[2022-08-28] MEDS ORDERED: HYDROCODONE/ACETAMINOPHEN 10/325MG TABLET PO PRN (03:45)
[2022-08-28] MEDS ORDERED: CLONIDINE 0.1MG TABLET PO PRN (03:45)
[2022-08-28] MEDS ORDERED: DEXTROSE 50% WATER 50ML SYRINGE IV PRN (03:45)
[2022-08-28] MEDS: LACTULOSE 20G/30ML UDC PO SCH ×3 (06:00→21:26)
[2022-08-28] MEDS: BLOOD SUGAR DIAGNOSTIC STRIP TEST SCH ×4 (06:08→21:23)
[2022-08-28] MEDS: METOPROLOL TARTRATE 50MG TABLET PO SCH ×3 (06:12→21:01)
[2022-08-28] MEDS: DILTIAZEM HCL 60MG TABLET PO SCH ×3 (06:12→16:58)
[2022-08-28 08:00] VITALS: BP 109/79
[2022-08-28] MEDS: INSULIN LISPRO 100 UNITS/ML SUBCUT SCH ×4 (09:00→21:00)
[2022-08-28] MEDS: GABAPENTIN 300MG CAPSULE PO SCH ×3 (09:18→16:56)
[2022-08-28] MEDS: POTASSIUM CHLORIDE 20MEQ/PACKET PO SCH (09:18)
[2022-08-28] MEDS: ERGOCALCIFEROL 50000UNITS CAPSULE PO SCH (09:18)
[2022-08-28 15:28] LABS: BASOPHILS % 0.6 % (0.0-2.0); HEMOGLOBIN. 11.1 g/dL (12.0-16.0); LYMPHOCYTES % 16.8 % (20.0-50.0); MEAN CORPUSCULAR HEMOGLOBIN 32.6 pg (28.0-32.0); MEAN CORPUSCULAR VOLUME 97.5 fL (81.0-99.0); MEAN PLATELET VOLUME 7.3 fl (7.4-10.4); MONOCYTES % 6.4 % (2.0-8.0); NEUTROPHILS % 75.2 % (40.0-76.0); PLATELET 369 x1000/uL (130-400); RED BLOOD CELL COUNT 3.39 mill/uL (4.2-5.4); RED CELL DISTRIBUTION WIDTH 14.2 % (11.6-14.6)
[2022-08-28 15:59] LABS: CHLORIDE 107 mEq/L (98-107)
[2022-08-28 20:05] VITALS: BP 117/60
[2022-08-28] MEDS: ATORVASTATIN CALCIUM 40MG TABLET PO SCH (21:00)
[2022-08-29] MEDS: DILTIAZEM HCL 60MG TABLET PO SCH ×5 (01:04→23:15)
[2022-08-29] MEDS: LACTULOSE 20G/30ML UDC PO SCH ×3 (06:00→21:10)
[2022-08-29] MEDS: BLOOD SUGAR DIAGNOSTIC STRIP TEST SCH ×4 (06:09→21:14)
[2022-08-29] MEDS: METOPROLOL TARTRATE 50MG TABLET PO SCH ×3 (06:13→21:10)
[2022-08-29 06:32] LABS: BASOPHILS % 0.6 % (0.0-2.0); EOSINOPHILS % 1.2 % (0.0-5.0); HEMATOCRIT. 31.9 % (36.0-48.0); HEMOGLOBIN. 10.8 g/dL (12.0-16.0); LYMPHOCYTES % 19.2 % (20.0-50.0); MEAN CORPUSCULAR HEMOGLOBIN 32.6 pg (28.0-32.0); MEAN CORPUSCULAR VOLUME 96.8 fL (81.0-99.0); MEAN PLATELET VOLUME 7.3 fl (7.4-10.4); MONOCYTES % 5.5 % (2.0-8.0); NEUTROPHILS % 73.5 % (40.0-76.0); PLATELET 366 x1000/uL (130-400); RED CELL DISTRIBUTION WIDTH 14.2 % (11.6-14.6)
[2022-08-29 07:41] LABS: CHLORIDE 107 mEq/L (98-107)
[2022-08-29 08:43] VITALS: BP 98/69
[2022-08-29] MEDS: INSULIN LISPRO 100 UNITS/ML SUBCUT SCH ×4 (09:00→21:00)
[2022-08-29] MEDS ORDERED: POTASSIUM CHLORIDE 20MEQ TABLET SR PO SCH (09:00)
[2022-08-29] MEDS: POTASSIUM CHLORIDE 20MEQ/PACKET PO SCH (09:01)
[2022-08-29] MEDS: GABAPENTIN 300MG CAPSULE PO SCH ×3 (09:01→16:43)
[2022-08-29 12:04] VITALS: BP 106/74
[2022-08-29 13:47] VITALS: BP 126/64
[2022-08-29 20:00] VITALS: BP 134/64
[2022-08-29] MEDS: ATORVASTATIN CALCIUM 40MG TABLET PO SCH (21:10)
[2022-08-30] MEDS: METOPROLOL TARTRATE 50MG TABLET PO SCH ×3 (05:25→21:00)
[2022-08-30] MEDS: LACTULOSE 20G/30ML UDC PO SCH ×3 (05:26→21:04)
[2022-08-30] MEDS: DILTIAZEM HCL 60MG TABLET PO SCH ×4 (05:26→23:20)
[2022-08-30] MEDS: BLOOD SUGAR DIAGNOSTIC STRIP TEST SCH ×4 (06:30→21:05)
[2022-08-30] MEDS: INSULIN LISPRO 100 UNITS/ML SUBCUT SCH ×4 (06:31→21:00)
[2022-08-30 07:18] LABS: CHLORIDE 108 mEq/L (98-107)
[2022-08-30 08:00] VITALS: BP 125/72
[2022-08-30] MEDS: GABAPENTIN 300MG CAPSULE PO SCH ×3 (09:00→13:31)
[2022-08-30] MEDS: POTASSIUM CHLORIDE 20MEQ/PACKET PO SCH (09:00)
[2022-08-30] MEDS ORDERED: POTASSIUM CHLORIDE 20MEQ TABLET SR PO NR (13:15)
[2022-08-30 20:00] VITALS: BP 110/65
[2022-08-30] MEDS: ATORVASTATIN CALCIUM 40MG TABLET PO SCH (21:01)
[2022-08-31] MEDS: DILTIAZEM HCL 60MG TABLET PO SCH ×3 (05:29→17:42)
[2022-08-31] MEDS: METOPROLOL TARTRATE 50MG TABLET PO SCH ×3 (05:29→21:04)
[2022-08-31] MEDS: LACTULOSE 20G/30ML UDC PO SCH ×3 (05:30→21:04)
[2022-08-31] MEDS: BLOOD SUGAR DIAGNOSTIC STRIP TEST SCH ×4 (05:42→21:00)
[2022-08-31 06:12] LABS: BASOPHILS % 0.6 % (0.0-2.0); EOSINOPHILS % 1.4 % (0.0-5.0); HEMATOCRIT. 32.3 % (36.0-48.0); HEMOGLOBIN. 10.6 g/dL (12.0-16.0); LYMPHOCYTES % 19.4 % (20.0-50.0); MEAN CORPUSCULAR HEMOGLOBIN 31.7 pg (28.0-32.0); MEAN CORPUSCULAR VOLUME 96.6 fL (81.0-99.0); MEAN PLATELET VOLUME 7.5 fl (7.4-10.4); MONOCYTES % 5.1 % (2.0-8.0); NEUTROPHILS % 73.5 % (40.0-76.0); PLATELET 324 x1000/uL (130-400); RED BLOOD CELL COUNT 3.35 mill/uL (4.2-5.4); RED CELL DISTRIBUTION WIDTH 14.1 % (11.6-14.6)
[2022-08-31 06:32] LABS: CHLORIDE 106 mEq/L (98-107)
[2022-08-31 08:00] VITALS: BP 128/74
[2022-08-31] MEDS: INSULIN LISPRO 100 UNITS/ML SUBCUT SCH ×4 (09:00→21:00)
[2022-08-31] MEDS: FOLIC ACID 1MG TABLET PO SCH (09:25)
[2022-08-31] MEDS: GABAPENTIN 300MG CAPSULE PO SCH ×3 (09:25→17:38)
[2022-08-31] MEDS: POTASSIUM CHLORIDE 20MEQ/PACKET PO SCH (09:27)
[2022-08-31] MEDS ORDERED: POTASSIUM CHLORIDE 20MEQ TABLET SR PO SCH (11:15)
[2022-08-31 20:00] VITALS: BP 117/71
[2022-08-31] MEDS: ATORVASTATIN CALCIUM 40MG TABLET PO SCH (21:03)
[2022-09-01] MEDS: DILTIAZEM HCL 60MG TABLET PO SCH ×4 (00:49→17:58)
[2022-09-01] MEDS: LACTULOSE 20G/30ML UDC PO SCH ×3 (06:00→22:00)
[2022-09-01] MEDS: BLOOD SUGAR DIAGNOSTIC STRIP TEST SCH ×4 (06:18→21:00)
[2022-09-01] MEDS: INSULIN LISPRO 100 UNITS/ML SUBCUT SCH ×4 (06:18→21:00)
[2022-09-01] MEDS: METOPROLOL TARTRATE 50MG TABLET PO SCH ×3 (06:18→21:42)
[2022-09-01 06:34] LABS: BASOPHILS % 0.8 % (0.0-2.0); EOSINOPHILS % 1.4 % (0.0-5.0); HEMATOCRIT. 31.2 % (36.0-48.0); HEMOGLOBIN. 10.6 g/dL (12.0-16.0); LYMPHOCYTES % 22.1 % (20.0-50.0); MEAN CORPUSCULAR HEMOGLOBIN 32.8 pg (28.0-32.0); MEAN CORPUSCULAR VOLUME 96.9 fL (81.0-99.0); MEAN PLATELET VOLUME 7.8 fl (7.4-10.4); MONOCYTES % 6.6 % (2.0-8.0); NEUTROPHILS % 69.1 % (40.0-76.0); PLATELET 300 x1000/uL (130-400); RED BLOOD CELL COUNT 3.22 mill/uL (4.2-5.4); RED CELL DISTRIBUTION WIDTH 14.2 % (11.6-14.6)
[2022-09-01 07:30] LABS: CHLORIDE 109 mEq/L (98-107)
[2022-09-01 08:00] VITALS: BP 122/60
[2022-09-01] MEDS: POTASSIUM CHLORIDE 20MEQ/PACKET PO SCH (09:11)
[2022-09-01] MEDS: FOLIC ACID 1MG TABLET PO SCH (09:11)
[2022-09-01] MEDS: GABAPENTIN 300MG CAPSULE PO SCH ×3 (09:11→17:57)
[2022-09-01 20:00] VITALS: BP 125/72
[2022-09-01] MEDS: ATORVASTATIN CALCIUM 40MG TABLET PO SCH (21:41)
[2022-09-02] MEDS: DILTIAZEM HCL 60MG TABLET PO SCH ×5 (00:18→23:09)
[2022-09-02] MEDS: METOPROLOL TARTRATE 50MG TABLET PO SCH ×3 (05:52→21:00)
[2022-09-02] MEDS: LACTULOSE 20G/30ML UDC PO SCH ×3 (06:00→21:01)
[2022-09-02] MEDS: BLOOD SUGAR DIAGNOSTIC STRIP TEST SCH ×4 (06:34→20:48)
[2022-09-02 07:40] LABS: BASOPHILS % 0.8 % (0.0-2.0); EOSINOPHILS % 2.1 % (0.0-5.0); HEMOGLOBIN. 10.7 g/dL (12.0-16.0); LYMPHOCYTES % 22.3 % (20.0-50.0); MEAN CORPUSCULAR HEMOGLOBIN 33.7 pg (28.0-32.0); MEAN CORPUSCULAR VOLUME 97.8 fL (81.0-99.0); MEAN PLATELET VOLUME 7.8 fl (7.4-10.4); MONOCYTES % 5.6 % (2.0-8.0); NEUTROPHILS % 69.2 % (40.0-76.0); PLATELET 303 x1000/uL (130-400); RED BLOOD CELL COUNT 3.17 mill/uL (4.2-5.4); RED CELL DISTRIBUTION WIDTH 14.1 % (11.6-14.6)
[2022-09-02 08:00] VITALS: BP 124/77
[2022-09-02] MEDS: INSULIN LISPRO 100 UNITS/ML SUBCUT SCH ×4 (08:17→20:54)
[2022-09-02] MEDS: POTASSIUM CHLORIDE 20MEQ/PACKET PO SCH (08:20)
[2022-09-02] MEDS: FOLIC ACID 1MG TABLET PO SCH (08:20)
[2022-09-02] MEDS: GABAPENTIN 300MG CAPSULE PO SCH ×3 (08:20→17:06)
[2022-09-02 10:32] LABS: CHLORIDE 105 mEq/L (98-107)
[2022-09-02 20:00] VITALS: BP 138/78
[2022-09-03] MEDS: METOPROLOL TARTRATE 50MG TABLET PO SCH ×3 (05:43→21:50)
[2022-09-03] MEDS: LACTULOSE 20G/30ML UDC PO SCH ×3 (05:43→22:12)
[2022-09-03] MEDS: DILTIAZEM HCL 60MG TABLET PO SCH ×3 (05:43→17:26)
[2022-09-03] MEDS: BLOOD SUGAR DIAGNOSTIC STRIP TEST SCH ×4 (06:36→21:00)
[2022-09-03] MEDS: INSULIN LISPRO 100 UNITS/ML SUBCUT SCH ×4 (06:44→22:43)
[2022-09-03 06:48] LABS: BASOPHILS % 0.6 % (0.0-2.0); CHLORIDE 105 mEq/L (98-107); EOSINOPHILS % 1.6 % (0.0-5.0); HEMATOCRIT. 30.8 % (36.0-48.0); HEMOGLOBIN. 10.5 g/dL (12.0-16.0); LYMPHOCYTES % 20.8 % (20.0-50.0); MEAN CORPUSCULAR HEMOGLOBIN 32.7 pg (28.0-32.0); MEAN CORPUSCULAR VOLUME 96.3 fL (81.0-99.0); MEAN PLATELET VOLUME 8.1 fl (7.4-10.4); MONOCYTES % 7.6 % (2.0-8.0); NEUTROPHILS % 69.4 % (40.0-76.0); PLATELET 281 x1000/uL (130-400); RED CELL DISTRIBUTION WIDTH 14.3 % (11.6-14.6)
[2022-09-03 08:00] VITALS: BP 123/76
[2022-09-03] MEDS: FOLIC ACID 1MG TABLET PO SCH (09:03)
[2022-09-03] MEDS: GABAPENTIN 300MG CAPSULE PO SCH ×3 (09:03→17:25)
[2022-09-03] MEDS: POTASSIUM CHLORIDE 20MEQ/PACKET PO SCH (09:03)
[2022-09-03] MEDS ORDERED: HYDROCODONE/ACETAMINOPHEN 5/325MG TABLET PO PRN (09:45)
[2022-09-03] MEDS ORDERED: NALOXONE HCL 0.4MG/ML VIAL IV PRN (09:45)
[2022-09-03 20:00] VITALS: BP 134/80
[2022-09-04] MEDS: DILTIAZEM HCL 60MG TABLET PO SCH ×4 (00:54→19:26)
[2022-09-04] MEDS: METOPROLOL TARTRATE 50MG TABLET PO SCH ×3 (05:38→20:20)
[2022-09-04] MEDS: LACTULOSE 20G/30ML UDC PO SCH ×3 (05:38→20:19)
[2022-09-04] MEDS: BLOOD SUGAR DIAGNOSTIC STRIP TEST SCH ×4 (06:30→20:19)
[2022-09-04 08:00] VITALS: BP 128/74
[2022-09-04 08:06] LABS: BASOPHILS % 0.8 % (0.0-2.0); EOSINOPHILS % 2.1 % (0.0-5.0); HEMATOCRIT. 33.2 % (36.0-48.0); HEMOGLOBIN. 11.3 g/dL (12.0-16.0); LYMPHOCYTES % 24.6 % (20.0-50.0); MEAN CORPUSCULAR HEMOGLOBIN 32.7 pg (28.0-32.0); MEAN CORPUSCULAR VOLUME 96.3 fL (81.0-99.0); MEAN PLATELET VOLUME 7.8 fl (7.4-10.4); MONOCYTES % 7.8 % (2.0-8.0); NEUTROPHILS % 64.7 % (40.0-76.0); PLATELET 332 x1000/uL (130-400); RED BLOOD CELL COUNT 3.45 mill/uL (4.2-5.4); RED CELL DISTRIBUTION WIDTH 14.3 % (11.6-14.6)
[2022-09-04] MEDS: INSULIN LISPRO 100 UNITS/ML SUBCUT SCH ×4 (08:19→20:19)
[2022-09-04] MEDS: FOLIC ACID 1MG TABLET PO SCH (08:29)
[2022-09-04] MEDS: ERGOCALCIFEROL 50000UNITS CAPSULE PO SCH (08:29)
[2022-09-04] MEDS: POTASSIUM CHLORIDE 20MEQ/PACKET PO SCH (08:29)
[2022-09-04] MEDS: GABAPENTIN 300MG CAPSULE PO SCH ×3 (08:29→17:58)
[2022-09-04 08:31] LABS: CHLORIDE 105 mEq/L (98-107)
[2022-09-04] MEDS ORDERED: DOCUSATE SODIUM 100MG CAPSULE PO SCH (09:00)
[2022-09-04] MEDS ORDERED: POLYETHYLENE GLYCOL 3350 (17GM) 1 DOSE PACK PO SCH (09:00)
[2022-09-04] MEDS ORDERED: POTASSIUM CHLORIDE 20MEQ/PACKET PO NR (10:45)
[2022-09-04 16:27] LABS: PHOSPHORUS 3.8 mg/dL (2.5-4.9)
[2022-09-04 20:00] VITALS: BP 147/88
[2022-09-05] MEDS: DILTIAZEM HCL 60MG TABLET PO SCH ×4 (00:36→18:00)
[2022-09-05] MEDS: LACTULOSE 20G/30ML UDC PO SCH (05:48)
[2022-09-05] MEDS: METOPROLOL TARTRATE 50MG TABLET PO SCH ×3 (06:00→22:19)
[2022-09-05] MEDS: BLOOD SUGAR DIAGNOSTIC STRIP TEST SCH ×4 (06:01→21:00)
[2022-09-05 07:05] LABS: EOSINOPHILS % 2.4 % (0.0-5.0); HEMATOCRIT. 32.9 % (36.0-48.0); LYMPHOCYTES % 26.6 % (20.0-50.0); MEAN CORPUSCULAR HEMOGLOBIN 32.5 pg (28.0-32.0); MEAN CORPUSCULAR VOLUME 97.3 fL (81.0-99.0); MONOCYTES % 6.6 % (2.0-8.0); NEUTROPHILS % 63.4 % (40.0-76.0); PLATELET 291 x1000/uL (130-400); RED BLOOD CELL COUNT 3.38 mill/uL (4.2-5.4); RED CELL DISTRIBUTION WIDTH 13.9 % (11.6-14.6)
[2022-09-05 07:14] LABS: CHLORIDE 106 mEq/L (98-107)
[2022-09-05 08:00] VITALS: BP 121/88
[2022-09-05] MEDS: POTASSIUM CHLORIDE 20MEQ/PACKET PO SCH (08:35)
[2022-09-05] MEDS: INSULIN LISPRO 100 UNITS/ML SUBCUT SCH ×4 (08:35→21:00)
[2022-09-05] MEDS: GABAPENTIN 300MG CAPSULE PO SCH ×3 (08:35→17:33)
[2022-09-05] MEDS: FOLIC ACID 1MG TABLET PO SCH (08:35)
[2022-09-05] MEDS ORDERED: MAGNESIUM 1 G PREMIX 100 ML IV NR (10:00)
[2022-09-05 20:00] VITALS: BP 123/70
[2022-09-06] MEDS: DILTIAZEM HCL 60MG TABLET PO SCH ×4 (06:00→17:13)
[2022-09-06 07:00] LABS: BASOPHILS % 0.8 % (0.0-2.0); EOSINOPHILS % 2.3 % (0.0-5.0); HEMATOCRIT. 32.7 % (36.0-48.0); HEMOGLOBIN. 11.1 g/dL (12.0-16.0); LYMPHOCYTES % 24.9 % (20.0-50.0); MEAN CORPUSCULAR HEMOGLOBIN 32.7 pg (28.0-32.0); MEAN CORPUSCULAR VOLUME 96.4 fL (81.0-99.0); MEAN PLATELET VOLUME 8.1 fl (7.4-10.4); MONOCYTES % 6.5 % (2.0-8.0); NEUTROPHILS % 65.5 % (40.0-76.0); PLATELET 314 x1000/uL (130-400); RED BLOOD CELL COUNT 3.39 mill/uL (4.2-5.4); RED CELL DISTRIBUTION WIDTH 14.2 % (11.6-14.6)
[2022-09-06] MEDS: METOPROLOL TARTRATE 50MG TABLET PO SCH ×3 (07:03→22:07)
[2022-09-06] MEDS: BLOOD SUGAR DIAGNOSTIC STRIP TEST SCH ×4 (07:03→21:33)
[2022-09-06 08:00] VITALS: BP 155/75
[2022-09-06 08:20] LABS: CHLORIDE 104 mEq/L (98-107)
[2022-09-06 08:36] LABS: PHOSPHORUS 3.3 mg/dL (2.5-4.9)
[2022-09-06] MEDS: INSULIN LISPRO 100 UNITS/ML SUBCUT SCH ×4 (09:00→21:00)
[2022-09-06] MEDS: FOLIC ACID 1MG TABLET PO SCH (09:36)
[2022-09-06] MEDS: GABAPENTIN 300MG CAPSULE PO SCH ×3 (09:36→17:13)
[2022-09-06] MEDS: POTASSIUM CHLORIDE 20MEQ/PACKET PO SCH (09:36)
[2022-09-06] MEDS ORDERED: POTASSIUM CHLORIDE 20MEQ TABLET SR PO NR (10:00)
[2022-09-06 20:00] VITALS: BP 142/83
[2022-09-06 21:00] VITALS: BP 135/89
[2022-09-07] MEDS: DILTIAZEM HCL 60MG TABLET PO SCH ×5 (01:28→23:21)
[2022-09-07 05:54] VITALS: BP 120/73
[2022-09-07] MEDS: BLOOD SUGAR DIAGNOSTIC STRIP TEST SCH ×4 (05:58→20:34)
[2022-09-07] MEDS: METOPROLOL TARTRATE 50MG TABLET PO SCH ×3 (06:29→21:16)
[2022-09-07 08:00] VITALS: BP 108/78
[2022-09-07] MEDS: INSULIN LISPRO 100 UNITS/ML SUBCUT SCH ×4 (09:00→20:39)
[2022-09-07] MEDS: POTASSIUM CHLORIDE 20MEQ/PACKET PO SCH (09:11)
[2022-09-07] MEDS: GABAPENTIN 300MG CAPSULE PO SCH ×3 (09:11→17:26)
[2022-09-07] MEDS: FOLIC ACID 1MG TABLET PO SCH (09:11)
[2022-09-07 20:00] VITALS: BP 134/70
[2022-09-08] MEDS: METOPROLOL TARTRATE 50MG TABLET PO SCH ×3 (05:25→21:26)
[2022-09-08] MEDS: DILTIAZEM HCL 60MG TABLET PO SCH ×3 (05:25→17:50)
[2022-09-08] MEDS: INSULIN LISPRO 100 UNITS/ML SUBCUT SCH ×4 (06:27→21:00)
[2022-09-08] MEDS: BLOOD SUGAR DIAGNOSTIC STRIP TEST SCH ×4 (06:27→21:16)
[2022-09-08 06:30] LABS: CHLORIDE 105 mEq/L (98-107)
[2022-09-08 06:46] LABS: BASOPHILS % 0.7 % (0.0-2.0); EOSINOPHILS % 1.9 % (0.0-5.0); HEMATOCRIT. 30.2 % (36.0-48.0); HEMOGLOBIN. 10.3 g/dL (12.0-16.0); LYMPHOCYTES % 26.3 % (20.0-50.0); MEAN CORPUSCULAR HEMOGLOBIN 33.1 pg (28.0-32.0); MEAN CORPUSCULAR VOLUME 97.3 fL (81.0-99.0); MEAN PLATELET VOLUME 8.1 fl (7.4-10.4); MONOCYTES % 7.6 % (2.0-8.0); NEUTROPHILS % 63.5 % (40.0-76.0); PLATELET 286 x1000/uL (130-400); RED CELL DISTRIBUTION WIDTH 13.9 % (11.6-14.6)
[2022-09-08 08:00] VITALS: BP 113/79
[2022-09-08] MEDS: POTASSIUM CHLORIDE 20MEQ/PACKET PO SCH (09:00)
[2022-09-08] MEDS ORDERED: POTASSIUM CHLORIDE 20MEQ TABLET SR PO SCH (10:00)
[2022-09-08] MEDS: FOLIC ACID 1MG TABLET PO SCH (10:16)
[2022-09-08] MEDS: GABAPENTIN 300MG CAPSULE PO SCH ×3 (10:16→17:49)
[2022-09-08] MEDS ORDERED: NALOXONE HCL 0.4MG/ML VIAL IV PRN (10:30)
[2022-09-08 20:00] VITALS: BP 153/60
[2022-09-09] MEDS: DILTIAZEM HCL 60MG TABLET PO SCH ×4 (00:48→17:38)
[2022-09-09] MEDS: BLOOD SUGAR DIAGNOSTIC STRIP TEST SCH ×4 (06:26→21:58)
[2022-09-09 06:32] VITALS: BP 131/83
[2022-09-09] MEDS: METOPROLOL TARTRATE 50MG TABLET PO SCH ×3 (06:36→21:00)
[2022-09-09] MEDS: POTASSIUM CHLORIDE 20MEQ/PACKET PO SCH (08:27)
[2022-09-09] MEDS: FOLIC ACID 1MG TABLET PO SCH (08:27)
[2022-09-09] MEDS: GABAPENTIN 300MG CAPSULE PO SCH ×3 (08:27→17:38)
[2022-09-09] MEDS: INSULIN LISPRO 100 UNITS/ML SUBCUT SCH ×4 (08:28→22:09)
[2022-09-09 09:01] LABS: CHLORIDE 107 mEq/L (98-107)
[2022-09-09] MEDS ORDERED: HYDROCODONE/ACETAMINOPHEN 5/325MG TABLET PO PRN (12:45)
[2022-09-09 20:00] VITALS: BP 129/77
[2022-09-10] MEDS: DILTIAZEM HCL 60MG TABLET PO SCH ×3 (02:07→13:01)
[2022-09-10 05:52] LABS: BASOPHILS % 0.7 % (0.0-2.0); EOSINOPHILS % 1.6 % (0.0-5.0); HEMATOCRIT. 31.9 % (36.0-48.0); HEMOGLOBIN. 10.8 g/dL (12.0-16.0); LYMPHOCYTES % 26.1 % (20.0-50.0); MEAN CORPUSCULAR HEMOGLOBIN 32.5 pg (28.0-32.0); MEAN PLATELET VOLUME 8.1 fl (7.4-10.4); MONOCYTES % 8.6 % (2.0-8.0); PLATELET 298 x1000/uL (130-400); RED BLOOD CELL COUNT 3.32 mill/uL (4.2-5.4); RED CELL DISTRIBUTION WIDTH 13.9 % (11.6-14.6)
[2022-09-10] MEDS: METOPROLOL TARTRATE 50MG TABLET PO SCH ×2 (06:47→13:01)
[2022-09-10] MEDS: BLOOD SUGAR DIAGNOSTIC STRIP TEST SCH ×2 (06:48→11:15)
[2022-09-10 08:20] LABS: CHLORIDE 105 mEq/L (98-107)
[2022-09-10] MEDS: POTASSIUM CHLORIDE 20MEQ/PACKET PO SCH (08:58)
[2022-09-10] MEDS: GABAPENTIN 300MG CAPSULE PO SCH ×2 (08:58→13:01)
[2022-09-10] MEDS: FOLIC ACID 1MG TABLET PO SCH (08:58)
[2022-09-10] MEDS: INSULIN LISPRO 100 UNITS/ML SUBCUT SCH ×2 (08:59→13:00)
[2022-09-10 11:51] VITALS: BP 132/76
[2022-09-10] MEDS ORDERED: METO-539 PO (14:25)
[2022-09-10] MEDS ORDERED: GABA-532 PO (14:25)
[2022-09-10] MEDS ORDERED: DILT60TA35 PO (14:25)
[2022-09-10] MEDS ORDERED: HYDR-4001 PO (14:25)
== END 2022-09-10 14:20 | disposition home health service (06) | DRG 551 ==
PROVIDERS: ADMIT Physical Medicine & Rehabilitation Spinal Cord Injury Medicine; ATTEND Internal Medicine
DX: M48.02 Spinal stenosis, cervical region (principal); G82.50 Quadriplegia, unspecified; G97.51 Postprocedural hemorrhage of a nervous system organ or structure following a nervous system procedure; E72.20 Disorder of urea cycle metabolism, unspecified; F05 Delirium due to known physiological condition; I50.30 Unspecified diastolic (congestive) heart failure; N17.9 Acute kidney failure, unspecified; N39.0 Urinary tract infection, site not specified; I69.354 Hemiplegia and hemiparesis following cerebral infarction affecting left non-dominant side; M50.00 Cervical disc disorder with myelopathy, unspecified cervical region; M47.12 Other spondylosis with myelopathy, cervical region; Y83.1 Surgical operation with implant of artificial internal device as the cause of abnormal reaction of the patient, or of later complication, without mention of misadventure at the time of the procedure; D64.9 Anemia, unspecified; E11.9 Type 2 diabetes mellitus without complications; E53.8 Deficiency of other specified B group vitamins; E55.9 Vitamin D deficiency, unspecified; E61.1 Iron deficiency; E78.5 Hyperlipidemia, unspecified; E87.6 Hypokalemia; F39 Unspecified mood [affective] disorder; I11.0 Hypertensive heart disease with heart failure; M47.22 Other spondylosis with radiculopathy, cervical region; I48.91 Unspecified atrial fibrillation; K76.0 Fatty (change of) liver, not elsewhere classified; M50.10 Cervical disc disorder with radiculopathy, unspecified cervical region; Y92.89 Other specified places as the place of occurrence of the external cause; Z79.01 Long term (current) use of anticoagulants; Z82.49 Family history of ischemic heart disease and other diseases of the circulatory system; Z85.038 Personal history of other malignant neoplasm of large intestine; R26.9 Unspecified abnormalities of gait and mobility; R53.81 Other malaise
CPT/HCPCS: 36415; 80048; 80053; 80076; 82140; 82962; 83735; 84100; 84134; 85025; 92523; 92610; 93970; 97110; 97112; 97116; 97162; 97166; 97530; 97535; A6261; J1815; J3475

== ENCOUNTER 2023-03-30 12:23 | Inpatient (IN) | payer MEDICARE, MEDICAID ==
[~2023-03-30] VITALS: Ht 152.4 cm; Wt 71.2 kg
[~2023-03-30 12:23] MED LIST changes: -AMI2 PO; -CARV12.545 PO; +DILT60TA35 PO; +GABA-532 PO; +HYDR-4001 PO; -LISI40TA13 PO; +METO-539 PO
[2023-03-30] MEDS ORDERED: ASPIRIN 325MG EC TABLET PO ONE (13:45)
[2023-03-30] MEDS ORDERED: APIX5TAB PO (13:56)
[2023-03-30] MEDS ORDERED: DOCU250C14 PO (13:57)
[2023-03-30] MEDS ORDERED: ASPIRIN 325MG EC TABLET PO NR (14:00)
[2023-03-30] MEDS ORDERED: COR12 PO (14:01)
[2023-03-30] MEDS ORDERED: AMI2 PO (14:02)
[2023-03-30] MEDS ORDERED: FAMO40TA7 PO (14:02)
[2023-03-30] MEDS ORDERED: LISI40TA13 PO (14:03)
[2023-03-30] MEDS ORDERED: FERR325T6 PO (14:03)
[2023-03-30 14:14] LABS: BASOPHILS % 0.6 % (0.0-2.0); EOSINOPHILS % 1.7 % (0.0-5.0); HEMATOCRIT. 39.3 % (36.0-48.0); HEMOGLOBIN. 13.1 g/dL (12.0-16.0); LYMPHOCYTES % 28.9 % (20.0-50.0); MEAN CORPUSCULAR HEMOGLOBIN 31.2 pg (28.0-32.0); MEAN PLATELET VOLUME 8.6 fl (7.4-10.4); MONOCYTES % 5.7 % (2.0-8.0); NEUTROPHILS % 63.1 % (40.0-76.0); PLATELET 222 x1000/uL (130-400); RED BLOOD CELL COUNT 4.19 mill/uL (4.2-5.4); RED CELL DISTRIBUTION WIDTH 14.7 % (11.6-14.6)
[2023-03-30 14:21] LABS: CHLORIDE 105 mEq/L (98-107)
[2023-03-30 14:25] LABS: INR 1.1; PROTHROMBIN TIME 11.6 sec (9.6-11.0)
[2023-03-30] MEDS ORDERED: MAGNESIUM/ALUMINUM HYDROXIDE/SIMETHICONE 30ML UDC PO PRN (14:30)
[2023-03-30] MEDS ORDERED: NITROGLYCERIN 0.4MG TABLET SL SL PRN (14:30)
[2023-03-30] MEDS ORDERED: IPRATROPIUM/ALBUTEROL 0.5-3(2.5)MG/3ML NEB NEB PRN (14:30)
[2023-03-30] MEDS ORDERED: ONDANSETRON HCL 4MG/2ML INJ IV PRN (14:30)
[2023-03-30] MEDS ORDERED: DOCUSATE SODIUM 100MG CAPSULE PO PRN (14:30)
[2023-03-30] MEDS ORDERED: DEXTROSE 50% WATER 50ML SYRINGE IV PRN (14:30)
[2023-03-30] MEDS ORDERED: GUAIFENESIN 200MG/10ML SUGAR FREE UDC PO PRN (14:30)
[2023-03-30] MEDS ORDERED: KETOROLAC 15MG/ML VIAL IV PRN (14:30)
[2023-03-30] MEDS ORDERED: ACETAMINOPHEN 325MG TABLET PO PRN (14:30)
[2023-03-30 14:36] LABS: ETHANOL BLOOD < 10 mg/dL
[2023-03-30 14:49] LABS: CLARITY URINE CLEAR (CLEAR); COLOR URINE YELLOW (YELLOW); KETONES URINE NEGATIVE (NEGATIVE); LEUKOCYTE ESTERASE URINE NEGATIVE (NEGATIVE); NITRITE URINE NEGATIVE (NEGATIVE); OCCULT BLOOD URINE NEGATIVE (NEGATIVE); PROTEIN URINE TRACE (NEGATIVE); SPECIFIC GRAVITY URINE 1.012 (1.005-1.030); UROBILINOGEN URINE 0.2 E.U./dL (0.2-1.0)
[2023-03-30] MEDS ORDERED: POTASSIUM CHLORIDE 20MEQ TABLET SR PO NR (15:00)
[2023-03-30 15:08] LABS: *AMPHETAMINES SCREEN URINE NEGATIVE (NEGATIVE); *BARBITURATES SCREEN URINE NEGATIVE (NEGATIVE); *BENZODIAZEPINES SCREEN URINE NEGATIVE (NEGATIVE); *COCAINE SCREEN URINE NEGATIVE (NEGATIVE); CANNABINOID URINE SCREEN NEGATIVE (NEGATIVE); METHADONE URINE SCREEN NEGATIVE (NEGATIVE); OPIATES URINE SCREEN NEGATIVE (NEGATIVE); PHENCYCLIDINE URINE SCREEN NEGATIVE (NEGATIVE)
[2023-03-30 16:49] LABS: T4 FREE 1.24 ng/dL (0.76-1.46)
[2023-03-30] MEDS: BLOOD SUGAR DIAGNOSTIC STRIP TEST SCH ×2 (17:00→21:00)
[2023-03-30 17:07] LABS: VITAMIN B12 SERUM 905 pg/mL (211-911)
[2023-03-30] MEDS: INSULIN LISPRO 100 UNITS/ML SUBCUT SCH ×2 (18:20→21:00)
[2023-03-30] MEDS: CLONIDINE 0.1MG TABLET PO PRN (18:45)
[2023-03-30] MEDS: APIXABAN 5 MG TABLET PO SCH (18:45)
[2023-03-30] MEDS: CARVEDILOL 3.125 MG TABLET PO SCH (18:45)
[2023-03-30] MEDS: ACETAMINOPHEN 325MG TABLET PO PRN (18:48)
[2023-03-30 20:00] VITALS: BP 160/111
[2023-03-30] MEDS: ATORVASTATIN CALCIUM 40MG TABLET PO SCH (21:24)
[2023-03-30] MEDS: FAMOTIDINE 20MG TABLET PO SCH (21:24)
[2023-03-31] VITALS: BP 136/92
[2023-03-31 00:23] LABS: CREATINE KINASE MB FRACTION 3.4 ng/mL (0.5-3.6)
[2023-03-31] MEDS: ZOLPIDEM TARTRATE 5MG TABLET PO PRN ×2 (02:13→21:18)
[2023-03-31 04:00] VITALS: BP 163/95
[2023-03-31] MEDS: APIXABAN 5 MG TABLET PO SCH ×2 (05:42→17:30)
[2023-03-31] MEDS: CARVEDILOL 3.125 MG TABLET PO SCH (05:43)
[2023-03-31] MEDS: BLOOD SUGAR DIAGNOSTIC STRIP TEST SCH ×4 (05:51→20:33)
[2023-03-31] MEDS: INSULIN LISPRO 100 UNITS/ML SUBCUT SCH ×4 (05:52→21:22)
[2023-03-31 06:54] LABS: BASOPHILS % 0.4 % (0.0-2.0); EOSINOPHILS % 1.1 % (0.0-5.0); HEMATOCRIT. 37.4 % (36.0-48.0); HEMOGLOBIN. 12.8 g/dL (12.0-16.0); LYMPHOCYTES % 25.8 % (20.0-50.0); MEAN CORPUSCULAR HEMOGLOBIN 31.5 pg (28.0-32.0); MEAN CORPUSCULAR VOLUME 91.9 fL (81.0-99.0); MEAN PLATELET VOLUME 8.8 fl (7.4-10.4); MONOCYTES % 6.1 % (2.0-8.0); NEUTROPHILS % 66.6 % (40.0-76.0); PLATELET 236 x1000/uL (130-400); RED BLOOD CELL COUNT 4.07 mill/uL (4.2-5.4); RED CELL DISTRIBUTION WIDTH 14.1 % (11.6-14.6)
[2023-03-31 06:56] LABS: CHLORIDE 101 mEq/L (98-107)
[2023-03-31 07:16] LABS: CREATINE KINASE 96 IU/L (26-192); CREATINE KINASE MB FRACTION 3.8 ng/mL (0.5-3.6)
[2023-03-31 08:00] VITALS: BP 118/98
[2023-03-31] MEDS ORDERED: DILTIAZEM HCL 5MG/ML 5ML VIAL IV PRN (08:30)
[2023-03-31] MEDS: AMIODARONE HCL 200 MG TABLET PO SCH (08:38)
[2023-03-31] MEDS: DILTIAZEM HCL 60MG TABLET PO SCH ×3 (08:43→21:18)
[2023-03-31] MEDS: CLOPIDOGREL 75MG TABLET PO SCH (08:44)
[2023-03-31] MEDS ORDERED: ASPIRIN 81MG EC TABLET PO SCH (09:00)
[2023-03-31 12:00] VITALS: BP 141/92
[2023-03-31 16:00] VITALS: BP 141/85
[2023-03-31 20:00] VITALS: BP 130/82
[2023-03-31] MEDS: ATORVASTATIN CALCIUM 40MG TABLET PO SCH (21:18)
[2023-03-31] MEDS: FAMOTIDINE 20MG TABLET PO SCH (21:18)
[2023-04-01] VITALS: BP 135/79
[2023-04-01 04:00] VITALS: BP 129/68
[2023-04-01] MEDS: APIXABAN 5 MG TABLET PO SCH ×2 (05:20→17:46)
[2023-04-01] MEDS: DILTIAZEM HCL 60MG TABLET PO SCH ×2 (05:20→14:00)
[2023-04-01] MEDS: BLOOD SUGAR DIAGNOSTIC STRIP TEST SCH ×4 (06:41→21:00)
[2023-04-01 08:00] VITALS: BP 142/67
[2023-04-01] MEDS: INSULIN LISPRO 100 UNITS/ML SUBCUT SCH ×4 (08:10→21:00)
[2023-04-01] MEDS: CLOPIDOGREL 75MG TABLET PO SCH (08:44)
[2023-04-01] MEDS: AMIODARONE HCL 200 MG TABLET PO SCH ×2 (08:44→19:38)
[2023-04-01 14:04] VITALS: BP 102/63
[2023-04-01 16:11] VITALS: BP 159/84
[2023-04-01 20:00] VITALS: BP_SYST 109; BP_SYST 142; BP_DIAS 54; BP_DIAS 92
[2023-04-01] MEDS: DILTIAZEM HCL 90MG TABLET PO SCH (21:11)
[2023-04-01] MEDS: FAMOTIDINE 20MG TABLET PO SCH (21:12)
[2023-04-01] MEDS: ACETAMINOPHEN 325MG TABLET PO PRN (21:12)
[2023-04-01] MEDS: ATORVASTATIN CALCIUM 40MG TABLET PO SCH (21:13)
[2023-04-01] MEDS: ZOLPIDEM TARTRATE 5MG TABLET PO PRN (21:13)
[2023-04-02] VITALS: BP 138/81
[2023-04-02] MEDS: CLONIDINE 0.1MG TABLET PO PRN (00:38)
[2023-04-02 04:00] VITALS: BP 116/67
[2023-04-02] MEDS: APIXABAN 5 MG TABLET PO SCH ×2 (05:46→17:26)
[2023-04-02] MEDS: DILTIAZEM HCL 90MG TABLET PO SCH ×3 (05:47→21:08)
[2023-04-02] MEDS: BLOOD SUGAR DIAGNOSTIC STRIP TEST SCH ×4 (06:59→21:00)
[2023-04-02 07:55] VITALS: BP 118/76
[2023-04-02] MEDS: CLOPIDOGREL 75MG TABLET PO SCH (09:00)
[2023-04-02] MEDS: INSULIN LISPRO 100 UNITS/ML SUBCUT SCH ×4 (09:00→21:00)
[2023-04-02] MEDS: AMIODARONE HCL 200 MG TABLET PO SCH ×2 (09:00→17:27)
[2023-04-02 11:19] VITALS: BP 107/50
[2023-04-02 16:21] VITALS: BP 128/69
[2023-04-02 20:22] VITALS: BP 130/83
[2023-04-02] MEDS: ATORVASTATIN CALCIUM 40MG TABLET PO SCH (21:08)
[2023-04-02] MEDS: FAMOTIDINE 20MG TABLET PO SCH (21:08)
[2023-04-03] VITALS (8 sets, daily range): BP systolic 104–164; BP diastolic 65–102
[2023-04-03] MEDS: APIXABAN 5 MG TABLET PO SCH ×2 (05:28→19:00)
[2023-04-03] MEDS: DILTIAZEM HCL 90MG TABLET PO SCH ×3 (05:28→21:30)
[2023-04-03] MEDS: BLOOD SUGAR DIAGNOSTIC STRIP TEST SCH ×3 (07:23→21:30)
[2023-04-03] MEDS: INSULIN LISPRO 100 UNITS/ML SUBCUT SCH ×3 (08:10→23:43)
[2023-04-03] MEDS: AMIODARONE HCL 200 MG TABLET PO SCH ×2 (08:11→19:00)
[2023-04-03] MEDS: CLOPIDOGREL 75MG TABLET PO SCH (08:11)
[2023-04-03] MEDS: ATORVASTATIN CALCIUM 40MG TABLET PO SCH (21:30)
[2023-04-03] MEDS: FAMOTIDINE 20MG TABLET PO SCH (21:30)
[2023-04-04 04:00] VITALS: BP 138/82
[2023-04-04] MEDS: BLOOD SUGAR DIAGNOSTIC STRIP TEST SCH ×3 (05:18→16:59)
[2023-04-04] MEDS: DILTIAZEM HCL 90MG TABLET PO SCH ×2 (05:18→13:30)
[2023-04-04] MEDS: APIXABAN 5 MG TABLET PO SCH ×2 (05:18→18:15)
[2023-04-04 08:00] VITALS: BP 129/65
[2023-04-04] MEDS: CLOPIDOGREL 75MG TABLET PO SCH (08:29)
[2023-04-04] MEDS: AMIODARONE HCL 200 MG TABLET PO SCH ×2 (08:30→18:15)
[2023-04-04] MEDS: INSULIN LISPRO 100 UNITS/ML SUBCUT SCH ×3 (08:38→17:00)
[2023-04-04 12:00] VITALS: BP 140/91
[2023-04-04 16:00] VITALS: BP 147/88
== END 2023-04-04 19:25 | DRG 64 ==
LOC: ER 12:23 → 7WST 13:46 → EDBEDREQ 13:49 → SUPCPDRO 14:40 → 7WST 18:28 → UNDODISIN 04-03 16:00 → 6EST 04-03 16:45
PROVIDERS: ADMIT Internal Medicine; ATTEND Internal Medicine
DX: I63.9 Cerebral infarction, unspecified (principal); G82.50 Quadriplegia, unspecified; I21.4 Non-ST elevation (NSTEMI) myocardial infarction; I69.354 Hemiplegia and hemiparesis following cerebral infarction affecting left non-dominant side; E87.6 Hypokalemia; I11.0 Hypertensive heart disease with heart failure; E78.00 Pure hypercholesterolemia, unspecified; D64.9 Anemia, unspecified; I16.0 Hypertensive urgency; I48.91 Unspecified atrial fibrillation; I50.9 Heart failure, unspecified; Z85.038 Personal history of other malignant neoplasm of large intestine; Z79.01 Long term (current) use of anticoagulants; Z79.4 Long term (current) use of insulin; E11.65 Type 2 diabetes mellitus with hyperglycemia; R29.701 NIHSS score 1
CPT/HCPCS: 36415; 70496; 70498; 70551; 71045; 80048; 80053; 80061; 80305; 80320; 81003; 82550; 82553; 82607; 82746; 82962; 83036; 83540; 83550; 83735; 84100; 84439; 84443; 84484; 85025; 92610; 93005; 93306; 93970; 97116; 97162; 99291; J1815; J1885; G0480